=== PATIENT | male | born 1940 | race Caucasian/White ===

== ENCOUNTER 2019-10-22 12:00 | Inpatient (IN) ==
[2019-10-22 12:08] VITALS: BMI 29.3
--- NOTE | 2019-10-22 12:57 | RAD ---
HISTORYPNEUMONIASTUDYCHEST, 1 [id number] view of the chestFINDINGSCardiac and mediastinal contours are normal. Mild worsening in the right lung scattered airspace disease. Patchy left peripheral base opacity is also now present. No definite pleural effusion or pneumothorax.IMPRESSIONWorsening appearance of pneumonia.Electronically signed by: Hiram Arellano (Oct 22, 2019 12:57:10)
--- NOTE | 2019-10-22 13:01 | DR.SOBA ---
HPI Time Seen Time Seen by Provider: 10/22/19 12:42 Primary Care Physician Primary Care Physician: DR KAPADIA Complaints Chief Complaint Doctors Comments: A 78 y/o male whom I saw here 1 week ago with presentation of poor appetite, fever/chills but no SOB. He had had a COVID-!9 test but result was not available at the time. He was dx. with RLL pneumonia and sent home on Levaquin for outpt. therapy. Today, he presents with information that his oxygen level at home is low while he's wearing oxygen. I then asked him if he has a lung disease necessitating home O2 use. He answered no, the Oxygen belongs to his step son. Chief Complaint:: PT WAS DIAGNOSED WITH PNA LAST WEEK IN ER. PT STATES THAT HE HAS BEEN WEARING OXYGEN AT HOME AND CAN'T GET OXYGEN LEVEL ABOVE 94% ON 2 LITERS SO HE FELT LIKE HE NEEDED TO BE SEEN. ON TRIAGE SAT IS 86% ON ROOM AIR. DENIES SOB OR PAIN. Self Treatment fo Chief Complaint: HAS BEEN ON LEVAQUIN X 6 DAYS COVID-19 Coronavirus risk:travel/contact w/high risk person: No Has patient experienced Coronavirus symptoms: No Reviewed Nurses Notes Reviewed: Yes Source History Provided: Patient Mode of Arrival Mode of Arrival: Ambulatory Timing Onset of Chief Complaint: 10/22/19 Context Onset:: At Rest PE Risk Factors:: None History of:: None Prehospital Care:: None Modifying Factors Improves:: Nothing Associated Signs and Symptoms Associated Signs and Symptoms: None PMH PMH Past Medical History: Yes Past Medical History: Dyslipidemia and GERD Past Medical History Comment: PARKINSONS Past Surgical History: Yes Surgical History: Appendectomy Past Surgical History Comment: HERNIA REPAIR Family History History of Family Medical Conditions: Yes Family Medical History: Hypertension Social History Does patient currently use any type of tobacco product: No Have you used tobacco products in the last 12 months: No Type of Tobacco Use: None Does any household member use tobacco: No Alcohol Use: None Do you use any recreational Drugs:: No Lives With: Family Lives Where: Home Travel Risk Coronavirus risk:travel/contact w/high risk person: No Has patient experienced Coronavirus symptoms: No Infectious screening In the last 2 months have you had wt loss of >10#?: NO Have you had fever, night sweats or hemotysis?: No Have you traveled outside the country in the last 6 months?: No Isolation: Standard ROS Review of Systems Constitutional: No Symptoms Reported Eyes: No Symptoms Reported ENTM: No Symptoms Reported Respiratoy: Short of Breath Cardiovascular: No Symptoms Reported Gastrointestinal/Abdominal: No Symptoms Reported Genitourinary: No Symptoms Reported Neurological: No Symptoms Reported Musculoskeletal: No Symptoms Reported Integumentary: No Symptoms Reported Hematologic/Lymphatic: No Symptoms Reported Endocrine: No Symptoms Reported Psychiatric: No Symptoms Reported PE Vital Signs Vitals: Temperature 97.3 F Pulse Rate 75 Respiratory Rate 20 Blood Pressure 125/64 O2 Sat by Pulse Oximetry 94 General Limitations: No Limitations General Appearance: Alert and In No Apparent Distress Head Head Exam: Normal Inspection, Atraumatic and Normocephalic Eyes Eye exam: Normal Appearance and EOMI ENT ENT Exam: Normal Exam, Normal Oropharynx, Normal External Ear Exam and Mucous Membranes Moist Neck Neck Exam: Normal Inspection, Full ROM and Trachea Midline Chest Chest Inspection: Normal Inspection and Symmetric Chest Wall Rise Respiratory Respiratory Exam: Normal Lung Sounds Bilat Cardiovascular Cardiovascular Exam: Regular Rate, Normal Rhythm, Normal Heart Sounds, +S1 and +S2 Abdominal Exam Abdominal Exam: Normal Inspection, Normal Bowel Sounds and Soft Extremities Extremities Exam: Normal Inspection and Full ROM Back Back Exam: Normal Inspection and Full ROM Neurologic Neurological Exam: Alert and Oriented X3 Psychiatric Psychiatric Exam: Normal Affect and Normal Mood Skin Skin Exam: Dry and Normal Color COURSE Reevaluation 1st: Unchanged Education/Counseling Education/Counseling: Patient, Education and Counseling Educated On: Treatment, Diagnosis, Prognosis and Needs for Follow Up ROR Labs Reviewed Laboratory Results Reviewed?: Yes Result Diagrams: 10/22/19 12:51 10/22/19 12:51 Laboratory: WBC 7.9 X10^3/uL (3.6-10.0) 10/22/19 12:51 RBC 4.42 X10^6/uL (4.7-6.0) L 10/22/19 12:51 Hgb 13.3 g/dL (13.5-18.0) L 10/22/19 12:51 Hct 38.9 % (42.0-54.0) L 10/22/19 12:51 MCV 87.9 fL (80.0-100.0) 10/22/19 12:51 MCH 30.1 pg (27.0-34.0) 10/22/19 12:51 MCHC 34.2 g/dL (33.0-35.0) 10/22/19 12:51 RDW 12.8 % (11.6-16.5) 10/22/19 12:51 Plt Count 367 X10^3/uL (150.0-450.0) 10/22/19 12:51 MPV 7.6 fL (7.4-11.0) 10/22/19 12:51 Neut % (Auto) 72.3 % (42.0-75.0) 10/22/19 12:51 Lymph % (Auto) 16.6 % (21.0-51.0) L 10/22/19 12:51 [place] % (Auto) 10.0 % (0.0-13.0) 10/22/19 12:51 Eos % (Auto) 0.6 % (0.9-2.9) L 10/22/19 12:51 Baso % (Auto) 0.5 % (0.2-1.0) 10/22/19 12:51 Neut # (Auto) 5.7 x10^3/uL (2.2-4.8) H 10/22/19 12:51 Lymph # (Auto) 1.3 X10^3/uL (1.3-2.9) 10/22/19 12:51 [place] # (Auto) 0.8 x10^3/uL (0.3-0.8) 10/22/19 12:51 Eos # (Auto) 0.0 x10^3/uL (0.0-0.2) 10/22/19 12:51 Baso # (Auto) 0.0 X10^3/uL (0.0-0.1) 10/22/19 12:51 Absolute Nucleated RBC 0.0 /100WBC 10/22/19 12:51 Sample Site Lr 10/22/19 13:40 ABG pH 7.480 (7.35-7.45) H 10/22/19 13:40 ABG pCO2 42.0 mmHg (35.0-45.0) 10/22/19 13:40 ABG pO2 69.0 mmHg (80.0-100.0) L 10/22/19 13:40 ABG HCO3 31.3 mmol/L (22-26) H* 10/22/19 13:40 ABG O2 Saturation 95.0 % (90-100) 10/22/19 13:40 ABG Base Excess 7.1 mmol/L (-2.0-2.0) H 10/22/19 13:40 Delfin Test Pos 10/22/19 13:40 A-a Gradient 78.0 mmHg 10/22/19 13:40 FiO2 28.0 10/22/19 13:40 Blood Gas Comments Tarun well cb 10/22/19 13:40 Sodium 140 mmol/L (136-145) 10/22/19 12:51 Corrected Sodium 140 mmol/L (136-145) 10/22/19 12:51 Potassium 3.5 mmol/L (3.5-5.1) 10/22/19 12:51 Chloride 104 mmol/L (98-107) 10/22/19 12:51 Carbon Dioxide 29.8 mmol/L (21-32) 10/22/19 12:51 BUN 25 mg/dL (7-18) H 10/22/19 12:51 Creatinine 1.10 mg/dL (0.70-1.30) 10/22/19 12:51 Est GFR (MDRD) Af Amer > 60 (>60) 10/22/19 12:51 Est GFR (MDRD) Non-Af > 60 (>60) 10/22/19 12:51 Glucose 117 mg/dL (65-99) H 10/22/19 12:51 Calcium 8.4 mg/dL (8.5-10.1) L 10/22/19 12:51 Corrected Calcium 9.5 mg/dL (8.5-10.1) 10/22/19 12:51 Total Bilirubin 0.60 mg/dL (0.2-1.0) 10/22/19 12:51 AST 52 Units/L (15-37) H 10/22/19 12:51 ALT 11 Units/L (12-78) L 10/22/19 12:51 Alkaline Phosphatase 43 Units/L (46-116) L 10/22/19 12:51 Total Protein 6.9 g/dL (6.4-8.2) 10/22/19 12:51 Albumin 2.6 g/dL (3.4-5.0) L 10/22/19 12:51 Globulin 4.3 g/dL (2.5-4.5) 10/22/19 12:51 Albumin/Globulin Ratio 0.6 Ratio (1.1-2.1) L 10/22/19 12:51 Opioid Opioid Risk Tool Age (Gustavo box if 16-45): No History of Preadolescent Sexual Abuse: No Total: 0 Total Score Risk Category: Low Risk Copyright: Seth HOBBS predicting aberrant behaviors Diagnosis Discharge Problem: Lobar pneumonia Dyspnea Qualifiers: Dyspnea type: shortness of breath Qualified Code(s): R06.02 - Shortness of breath
[2019-10-22 13:16] LABS: BASOPHILS % (AUTO) 0.5 % (0.2-1.0); EOSINOPHILS % (AUTO) 0.6 % (0.9-2.9); HEMATOCRIT 38.9 % (42.0-54.0); HEMOGLOBIN 13.3 g/dL (13.5-18.0); LYMPHOCYTES # (AUTO) 1.3 X10^3/uL (1.3-2.9); LYMPHOCYTES % (AUTO) 16.6 % (21.0-51.0); MEAN CORPUSCULAR HEMOGLOBIN 30.1 pg (27.0-34.0); MEAN CORPUSCULAR HGB CONC 34.2 g/dL (33.0-35.0); MEAN CORPUSCULAR VOLUME 87.9 fL (80.0-100.0); MEAN PLATELET VOLUME 7.6 fL (7.4-11.0); MONOCYTES # (AUTO) 0.8 x10^3/uL (0.3-0.8); NEUTROPHILS # (AUTO) 5.7 x10^3/uL (2.2-4.8); NEUTROPHILS % (AUTO) 72.3 % (42.0-75.0); PLATELET COUNT 367 X10^3/uL (150.0-450.0); RED BLOOD COUNT 4.42 X10^6/uL (4.7-6.0); RED CELL DISTRIBUTION WIDTH 12.8 % (11.6-16.5); WHITE BLOOD COUNT 7.9 X10^3/uL (3.6-10.0)
[2019-10-22 13:24] LABS: ALANINE AMINOTRANSFERASE 11 Units/L (12-78); ALBUMIN 2.6 g/dL (3.4-5.0); ALKALINE PHOSPHATASE 43 Units/L (46-116); ASPARTATE AMINO TRANSFERASE 52 Units/L (15-37); BLOOD UREA NITROGEN 25 mg/dL (7-18); CALCIUM 8.4 mg/dL (8.5-10.1); CARBON DIOXIDE 29.8 mmol/L (21-32); CHLORIDE 104 mmol/L (98-107); COR CA(FOR HYPOALB) 9.5 mg/dL (8.5-10.1); COR NA(FOR HYPERGLY) 140 mmol/L (136-145); SODIUM 140 mmol/L (136-145); TOTAL PROTEIN 6.9 g/dL (6.4-8.2); eGFR NON BLACK RACES > 60 (>60)
[2019-10-22 13:45] LABS: ABG BASE EXCESS 7.1 mmol/L (-2.0-2.0)
[2019-10-22 13:46] LABS: ABG ALLEN TEST POS; ABG HCO3 31.3 mmol/L (22-26)
[2019-10-22] MEDS ORDERED: NS 1/2 1000 ML IV 1,000 ML IV ONE ×2 (18:42→19:55)
[2019-10-22] MEDS: ROBITUSSIN DM PO SCH ×2 (18:45→20:28)
[2019-10-22] MEDS: NS 1/2 1000 ML IV 1,000 ML IV SCH (18:45)
[2019-10-22] MEDS: ZOSYN VIAL 3.375 GRAMS 3.375 G in NS 100 ML IV + SPIKE MINIBAG* 100 ML IV SCH (20:27)
[2019-10-22] MEDS ORDERED: MUCOMYST 20% 200 MG/ML NEB SCH (21:00)
[2019-10-22] MEDS ORDERED: PULMICORT NEB TX 0.5 MG NEB SCH (21:00)
[2019-10-22] MEDS: MUCOMYST (RESPIRATORY USE ONLY) NEB SCH (21:40)
[2019-10-22] MEDS: DUONEB 0.5 MG/3 MG (3 mL) NEB SCH (21:40)
[2019-10-22] MEDS: PULMICORT NEB TX 0.5 MG NEB SCH (21:40)
[2019-10-22] MEDS ORDERED: DUONEB 0.5 MG/3 MG (3 mL) NEB SCH (22:00)
[2019-10-23] MEDS: ZOSYN VIAL 3.375 GRAMS 3.375 G in NS 100 ML IV + SPIKE MINIBAG* 100 ML IV SCH ×4 (00:21→21:29)
[2019-10-23] MEDS: MUCOMYST (RESPIRATORY USE ONLY) NEB SCH ×3 (05:45→21:15)
[2019-10-23] MEDS: DUONEB 0.5 MG/3 MG (3 mL) NEB SCH ×3 (05:45→21:15)
[2019-10-23] MEDS: NS 1/2 1000 ML IV 1,000 ML IV SCH ×3 (05:54→21:28)
[2019-10-23 06:05] LABS: ALANINE AMINOTRANSFERASE 44 Units/L (12-78); ALBUMIN 2.3 g/dL (3.4-5.0); ALKALINE PHOSPHATASE 42 Units/L (46-116); ASPARTATE AMINO TRANSFERASE 47 Units/L (15-37); BLOOD UREA NITROGEN 19 mg/dL (7-18); CALCIUM 8.3 mg/dL (8.5-10.1); CARBON DIOXIDE 31.6 mmol/L (21-32); CHLORIDE 105 mmol/L (98-107); COR CA(FOR HYPOALB) 9.7 mg/dL (8.5-10.1); COR NA(FOR HYPERGLY) 142 mmol/L (136-145); SODIUM 142 mmol/L (136-145); TOTAL PROTEIN 6.3 g/dL (6.4-8.2); eGFR NON BLACK RACES > 60 (>60)
[2019-10-23 06:10] LABS: BASOPHILS # (AUTO) 0.1 X10^3/uL (0.0-0.1); BASOPHILS % (AUTO) 0.6 % (0.2-1.0); EOSINOPHILS # (AUTO) 0.1 x10^3/uL (0.0-0.2); EOSINOPHILS % (AUTO) 1.2 % (0.9-2.9); HEMATOCRIT 36.6 % (42.0-54.0); HEMOGLOBIN 12.4 g/dL (13.5-18.0); LYMPHOCYTES # (AUTO) 1.3 X10^3/uL (1.3-2.9); LYMPHOCYTES % (AUTO) 16.2 % (21.0-51.0); MEAN CORPUSCULAR HEMOGLOBIN 30.2 pg (27.0-34.0); MEAN CORPUSCULAR HGB CONC 33.8 g/dL (33.0-35.0); MEAN CORPUSCULAR VOLUME 89.4 fL (80.0-100.0); MEAN PLATELET VOLUME 8.1 fL (7.4-11.0); MONOCYTES % (AUTO) 12.6 % (0.0-13.0); NEUTROPHILS # (AUTO) 5.7 x10^3/uL (2.2-4.8); NEUTROPHILS % (AUTO) 69.4 % (42.0-75.0); PLATELET COUNT 350 X10^3/uL (150.0-450.0); WHITE BLOOD COUNT 8.2 X10^3/uL (3.6-10.0)
[2019-10-23] MEDS: ASPIRIN EC 81 MG PO SCH (08:35)
[2019-10-23] MEDS: PULMICORT NEB TX 0.5 MG NEB SCH ×2 (08:49→21:15)
[2019-10-23] MEDS: ROBITUSSIN DM PO SCH ×4 (08:56→21:28)
[2019-10-23] MEDS: PriLOSEC PO SCH (08:56)
[2019-10-23] MEDS: ZOCOR TAB 20 MG PO SCH (08:57)
[2019-10-23] MEDS: VSL#3 PO SCH (08:58)
[2019-10-23] MEDS ORDERED: REMDESIVIR (INVESTIGATIONAL DRUG GS-5734) 200 MG in NS 250 ML IV 250 ML IV NR (09:00)
[2019-10-23] MEDS: LOVENOX INJ 40 MG SYR SC SCH (11:00)
--- NOTE | 2019-10-23 13:45 | DR.H&P ---
H&P - History & Physical for Day of: H&P Date: 10/22/19 - Chief Complaint Chief Complaint: WEAKNESS, SOB, PNEUMONIA COVID 19 - History of Present Illness History of Present Illness: A 78 y/o male whom I saw here 1 week ago with presentation of poor appetite, fever/chills but no SOB. He had had a COVID-!9 test but result was not available at the time. He was dx. with RLL pneumonia and sent home on Levaquin for outpt. therapy. Pt co PMH of hyperlipidemia, denies any HTN, DM or CAD. pt admitted for treatment of covid 19 pneumonia with hypoxia - Past Medical History Past Medical History: Dyslipidemia, GERD - Past Surgical History Surgical History: Appendectomy - Family History Family Medical History: Hypertension - Social History Does patient currently use any type of tobacco product: No Have you used tobacco products in the last 12 months: No Type of Tobacco Use: None Does any household member use tobacco: No Alcohol Use: None - Medications Home Medications: No Known Drug Allergies Allergy (Verified 10/15/19 11:51) CONTINUE taking the following medications carbidopa-levodopa [Sinemet] 1 tab PO TID 10/22/19 [History] - Review of Systems Constitutional: Fever, Chills, Weakness, Malaise Eyes: No Symptoms Reported ENT: Nose Congestion, Throat Pain Respiratory: Cough, Shortness of Breath Cardiovascular: No Symptoms Reported Gastrointestinal: Nausea, Other (poor appetite) Genitourinary: No Symptoms Reported Musculoskeletal: No Symptoms Reported Skin: No Symptoms Reported Neurological: No Symptoms Reported - Physical Exam Vital Signs: Temperature 98.4 F Pulse Rate [Bilateral Radial] 76 Pulse Rate 84 Respiratory Rate 20 Blood Pressure [Right Arm] 146/67 Blood Pressure 102/57 O2 Sat by Pulse Oximetry 95 Oriented: Normal Eyes: Normal Ear: Normal Nose: Normal Throat: Dry Respiratory: RLL Diminished, LLL Diminished Cardiovascular: Normal. negative: Edema : Normal Auscultation: Bowel Sounds: Normal Palpation: Normal Tenderness: Normal Skin: Decreased Turgur Musculoskeletal: Normal Psychiatric: Anxiety Affect: Anxious Speech Pattern: Clear, Appropriate - Assessment/Plan (1) Pneumonia due to COVID-19 virus Status: Acute Plan: ADMIT, IV ATBX, SUPPLEMENTAL O2. CXR ON ADMISSION, IV HYDRATION. ABG ON ADMISSION, VERIFY HOME MEDICATION. STRICT I&OS, RESP THERAPY (2) Hypoxemia Status: Acute - Allergies Allergies/Adverse Reactions: Allergies Allergy/AdvReac Type Severity Reaction Status Date / Time No Known Drug Allergies Allergy Verified 10/15/19 11:51
[2019-10-23] MEDS ORDERED: K-DUR TAB 20 MEQ PO ONE (15:12)
[2019-10-23] MEDS: SOLU-Medrol 125 MG VIAL IVP SCH ×2 (15:30→21:28)
[2019-10-24] MEDS: ZOSYN VIAL 3.375 GRAMS 3.375 G in NS 100 ML IV + SPIKE MINIBAG* 100 ML IV SCH ×3 (05:43→21:10)
[2019-10-24] MEDS: SOLU-Medrol 125 MG VIAL IVP SCH ×3 (05:43→21:10)
[2019-10-24] MEDS: DUONEB 0.5 MG/3 MG (3 mL) NEB SCH ×3 (05:45→21:10)
[2019-10-24] MEDS: MUCOMYST (RESPIRATORY USE ONLY) NEB SCH ×3 (05:45→21:10)
[2019-10-24 06:07] LABS: ALANINE AMINOTRANSFERASE 48 Units/L (12-78); ALBUMIN 2.2 g/dL (3.4-5.0); ALKALINE PHOSPHATASE 40 Units/L (46-116); ASPARTATE AMINO TRANSFERASE 36 Units/L (15-37); BLOOD UREA NITROGEN 19 mg/dL (7-18); CALCIUM 8.1 mg/dL (8.5-10.1); CARBON DIOXIDE 28.8 mmol/L (21-32); CHLORIDE 107 mmol/L (98-107); COR CA(FOR HYPOALB) 9.5 mg/dL (8.5-10.1); COR NA(FOR HYPERGLY) 142 mmol/L (136-145); CREATININE 1.06 mg/dL (0.70-1.30); SODIUM 140 mmol/L (136-145); eGFR NON BLACK RACES > 60 (>60)
[2019-10-24 06:08] LABS: BASOPHILS # (AUTO) 0.1 X10^3/uL (0.0-0.1); BASOPHILS % (AUTO) 1.4 % (0.2-1.0); HEMATOCRIT 34.1 % (42.0-54.0); HEMOGLOBIN 11.6 g/dL (13.5-18.0); LYMPHOCYTES # (AUTO) 0.9 X10^3/uL (1.3-2.9); LYMPHOCYTES % (AUTO) 13.9 % (21.0-51.0); MEAN CORPUSCULAR HGB CONC 33.9 g/dL (33.0-35.0); MEAN CORPUSCULAR VOLUME 88.6 fL (80.0-100.0); MONOCYTES # (AUTO) 0.1 x10^3/uL (0.3-0.8); MONOCYTES % (AUTO) 1.8 % (0.0-13.0); NEUTROPHILS # (AUTO) 5.1 x10^3/uL (2.2-4.8); NEUTROPHILS % (AUTO) 82.9 % (42.0-75.0); PLATELET COUNT 363 X10^3/uL (150.0-450.0); RED BLOOD COUNT 3.85 X10^6/uL (4.7-6.0); RED CELL DISTRIBUTION WIDTH 12.5 % (11.6-16.5); WHITE BLOOD COUNT 6.1 X10^3/uL (3.6-10.0)
[2019-10-24] MEDS ORDERED: NS 1/2 1000 ML IV 1,000 ML IV ONE (07:16)
[2019-10-24] MEDS: ASPIRIN EC 81 MG PO SCH (08:30)
[2019-10-24] MEDS: REMDESIVIR (INVESTIGATIONAL DRUG GS-5734) 100 MG in NS 250 ML IV 250 ML IV SCH (08:31)
[2019-10-24] MEDS: ROBITUSSIN DM PO SCH ×4 (08:31→20:50)
[2019-10-24] MEDS: NS 1/2 1000 ML IV 1,000 ML IV SCH ×2 (08:31→11:42)
[2019-10-24] MEDS: PriLOSEC PO SCH (08:32)
[2019-10-24] MEDS: VSL#3 PO SCH (08:32)
[2019-10-24] MEDS: LOVENOX INJ 40 MG SYR SC SCH (08:33)
[2019-10-24] MEDS: ZOCOR TAB 20 MG PO SCH (08:33)
[2019-10-24] MEDS: PULMICORT NEB TX 0.5 MG NEB SCH ×2 (09:03→21:10)
--- NOTE | 2019-10-24 14:59 | RAD ---
HISTORYPNEUMONIASTUDYPortable AP chestCOMPARISONAugust 2019FINDINGSThere is little change showing multifocal infiltrates most severe at the right lung base and peripherally in the right upper lobe. There is a mild infiltrate at the left lung base laterally. The heart size is prominent. The mediastinum is unremarkable. Right costophrenic angle is minimally blunted.IMPRESSIONPersistent peripheral right lung multifocal pneumonia most prominent in the right lower lobe with a questionable tiny right pleural effusionLeft basilar peripheral subsegmental atelectasis or pneumonitis.Electronically signed by: LAURA ANAND (Oct 24, 2019 14:57:33)
[2019-10-25] MEDS: SOLU-Medrol 125 MG VIAL IVP SCH ×3 (05:14→21:21)
[2019-10-25] MEDS: NS 1/2 1000 ML IV 1,000 ML IV SCH ×2 (05:14→15:41)
[2019-10-25] MEDS: ZOSYN VIAL 3.375 GRAMS 3.375 G in NS 100 ML IV + SPIKE MINIBAG* 100 ML IV SCH ×3 (05:15→21:21)
[2019-10-25 05:42] LABS: ABG ALLEN TEST POS; ABG BASE EXCESS 2.8 mmol/L (-2.0-2.0); ABG HCO3 26.1 mmol/L (22-26)
[2019-10-25 05:50] LABS: ALANINE AMINOTRANSFERASE 41 Units/L (12-78); ALBUMIN 2.1 g/dL (3.4-5.0); ALKALINE PHOSPHATASE 38 Units/L (46-116); ASPARTATE AMINO TRANSFERASE 23 Units/L (15-37); BASOPHILS # (AUTO) 0.1 X10^3/uL (0.0-0.1); BASOPHILS % (AUTO) 0.7 % (0.2-1.0); BLOOD UREA NITROGEN 27 mg/dL (7-18); CALCIUM 8.1 mg/dL (8.5-10.1); CARBON DIOXIDE 27.8 mmol/L (21-32); CHLORIDE 106 mmol/L (98-107); COR CA(FOR HYPOALB) 9.6 mg/dL (8.5-10.1); COR NA(FOR HYPERGLY) 144 mmol/L (136-145); CREATININE 1.17 mg/dL (0.70-1.30); HEMATOCRIT 32.3 % (42.0-54.0); LYMPHOCYTES # (AUTO) 0.8 X10^3/uL (1.3-2.9); LYMPHOCYTES % (AUTO) 6.4 % (21.0-51.0); MEAN CORPUSCULAR HEMOGLOBIN 29.9 pg (27.0-34.0); MEAN CORPUSCULAR VOLUME 88.1 fL (80.0-100.0); MEAN PLATELET VOLUME 8.1 fL (7.4-11.0); MONOCYTES # (AUTO) 0.6 x10^3/uL (0.3-0.8); MONOCYTES % (AUTO) 4.7 % (0.0-13.0); NEUTROPHILS # (AUTO) 10.8 x10^3/uL (2.2-4.8); NEUTROPHILS % (AUTO) 88.2 % (42.0-75.0); PLATELET COUNT 382 X10^3/uL (150.0-450.0); RED BLOOD COUNT 3.66 X10^6/uL (4.7-6.0); RED CELL DISTRIBUTION WIDTH 12.8 % (11.6-16.5); SODIUM 141 mmol/L (136-145); TOTAL PROTEIN 5.6 g/dL (6.4-8.2); WHITE BLOOD COUNT 12.2 X10^3/uL (3.6-10.0); eGFR NON BLACK RACES > 60 (>60)
[2019-10-25] MEDS: DUONEB 0.5 MG/3 MG (3 mL) NEB SCH ×3 (06:26→21:00)
[2019-10-25] MEDS: MUCOMYST (RESPIRATORY USE ONLY) NEB SCH ×3 (06:26→21:00)
--- NOTE | 2019-10-25 06:38 | RAD ---
HISTORYSOBSTUDYAP [id number]/2020FINDINGSMild stable cardiomegaly. Persistent bilateral pulmonary infiltrates, right lung greater than left. There is no new consolidation, developing edema or large pleural effusion.IMPRESSIONNo change in appearance of the bilateral pulmonary infiltrates/pneumonia.Electronically signed by: ANDREZ SUMMERS (Oct 25, 2019 06:37:46)
[2019-10-25] MEDS: PULMICORT NEB TX 0.5 MG NEB SCH ×2 (09:40→21:00)
[2019-10-25] MEDS: REMDESIVIR (INVESTIGATIONAL DRUG GS-5734) 100 MG in NS 250 ML IV 250 ML IV SCH (10:20)
[2019-10-25] MEDS: ASPIRIN EC 81 MG PO SCH (10:20)
[2019-10-25] MEDS: ROBITUSSIN DM PO SCH ×4 (10:21→21:21)
[2019-10-25] MEDS: VSL#3 PO SCH (10:21)
[2019-10-25] MEDS: PriLOSEC PO SCH (10:21)
[2019-10-25] MEDS: ZOCOR TAB 20 MG PO SCH (10:22)
[2019-10-25] MEDS: LOVENOX INJ 40 MG SYR SC SCH (10:22)
--- NOTE | 2019-10-25 11:22 | PCM.PROG ---
Progress Note - Progress Note for Day of Date of Exam: 10/25/19 - Subjective Subjective: IS A PATIENT OF . HE IS BEING TREATED FOR PNEUMONIA DUE TO COVID-19, AND HYPOXIA. TODAY, HE IS LYING IN BED ON MORNING ROUNDS. HE AWAKENS TO VERBAL STIMULI. HE CONTINUES WITH COMPLAINTS OF COUGH, SHORTNESS OF BREATH, AND WEAKNESS TODAY. HE IS CURRENTLY UTILIZING OXYGEN VIA NASAL CANNULA. ON EXAMINATION, HEART IS REGULAR IN RATE AND RHYTHM. BILATERAL LUNGS ARE NOTED WITH DIMINISHED LUNG SOUNDS THROUGHOUT. ABDOMEN IS ROUND, SOFT, AND NON-TENDER WITH NORMAL BOWEL SOUNDS NOTED IN ALL QUADRANTS. HER VITALS THIS MORNING ARE: 97.7-65-18-94%NC-111/59. LABS WERE OBTAINED. ABNORMAL LAB VALUES INCLUDE THE FOLLOWING: WBC 12.2, RBC 3.66, HGB 11.0, HCT 32.3, BUN 27, GLUCOSE 217, CALCIUM 8.1, ALK PHOS 38, CRP 7.80, TOTAL PROTEIN 5.6, ALBUMIN 2.1. AN ABG WAS OBTAINED AND REVEALED: PH 7.480, PC02 35, P02 73, HC03 26.1, 02 SAT 96, FI02 28. BLOOD CULTURES ARE PENDING. A CHEST XRAY WAS OBTAINED AND REVEALED: No change in appearance of the bilateral pulmonary infiltrates/pneumonia. HE IS CURRENTLY RECEIVING 1/2NS AT 75 ML/HR, ZOSYN 3.375 G IV TID, REMDESIVIR 100MG IV DAILY, SOLU-MEDROL 80MG IV Q8H, DUONEBS TID, PULMICORT NEBS BID, MUCOMYST IN NEB [place] TID, LOVENOX 40MG SC DAILY, ROBITUSSIN DM 10ML PO QID.WE WILL CONTINUE WITH CURRENT PLAN OF CARE TODAY. OTHERWISE, WE PLAN TO FOLLOW UP WITH AM LABS, CHEST XRAY, AND ABG AND CONTINUE TO MONITOR. - Past Medical Family Social History Past Med/Fam/Surg Hx: No changes since H&P Allergies: Allergies No Known Drug Allergies Allergy (Verified 10/15/19 11:51) - Review of Systems ROS: No change since H&P - Vital Signs and I&O's Vital Signs: Temperature 97.7 F Pulse Rate [Bilateral Radial] 65 Pulse Rate 74 Respiratory Rate 18 Blood Pressure [Right Arm] 111/59 Blood Pressure 102/57 O2 Sat by Pulse Oximetry 94 Intake and Output: Intake & Output 08/19/20 08/20/20 08/21/20 08/22/20 11:59 11:59 11:59 11:59 Intake Total 1089 / 1089 2954 / 2954 2774 / 2774 Output Total 100 / 100 1051 / 1051 525 / 525 Balance 989 / 989 1903 / 1903 2249 / 2249 - Physical Exam Oriented: Normal Eyes: Normal Ear: Normal Nose: Normal Throat: Dry Respiratory: Generalized, Diminished, Wheezes Cardiovascular: Normal. negative: Edema : Normal Auscultation: Bowel Sounds: Normal Palpation: Normal Tenderness: Normal Skin: Decreased Turgur Musculoskeletal: Normal Psychiatric: Anxiety Affect: Anxious Speech Pattern: Clear, Appropriate - Laboratory and Diagnostics Result Diagrams: 10/25/19 04:00 10/25/19 04:00 Labs: 10/22/19 18:25 Blood Blood Culture - Preliminary 10/22/19 15:34 Blood Blood Culture - Preliminary 10/22/19 13:00 Blood Blood Culture - Preliminary 10/22/19 12:51 Blood Blood Culture - Preliminary Laboratory WBC 12.2 X10^3/uL (3.6-10.0) H 10/25/19 04:00 RBC 3.66 X10^6/uL (4.7-6.0) L 10/25/19 04:00 Hgb 11.0 g/dL (13.5-18.0) L 10/25/19 04:00 Hct 32.3 % (42.0-54.0) L 10/25/19 04:00 MCV 88.1 fL (80.0-100.0) 10/25/19 04:00 MCH 29.9 pg (27.0-34.0) 10/25/19 04:00 MCHC 34.0 g/dL (33.0-35.0) 10/25/19 04:00 RDW 12.8 % (11.6-16.5) 10/25/19 04:00 Plt Count 382 X10^3/uL (150.0-450.0) 10/25/19 04:00 MPV 8.1 fL (7.4-11.0) 10/25/19 04:00 Neut % (Auto) 88.2 % (42.0-75.0) H 10/25/19 04:00 Lymph % (Auto) 6.4 % (21.0-51.0) L 10/25/19 04:00 [place] % (Auto) 4.7 % (0.0-13.0) 10/25/19 04:00 Eos % (Auto) 0.0 % (0.9-2.9) L 10/25/19 04:00 Baso % (Auto) 0.7 % (0.2-1.0) 10/25/19 04:00 Neut # (Auto) 10.8 x10^3/uL (2.2-4.8) H 10/25/19 04:00 Lymph # (Auto) 0.8 X10^3/uL (1.3-2.9) L 10/25/19 04:00 [place] # (Auto) 0.6 x10^3/uL (0.3-0.8) 10/25/19 04:00 Eos # (Auto) 0.0 x10^3/uL (0.0-0.2) 10/25/19 04:00 Baso # (Auto) 0.1 X10^3/uL (0.0-0.1) 10/25/19 04:00 Absolute Nucleated RBC 0.0 /100WBC 10/25/19 04:00 Sample Site Rr 10/25/19 05:00 ABG pH 7.480 (7.35-7.45) H 10/25/19 05:00 ABG pCO2 35.0 mmHg (35.0-45.0) 10/25/19 05:00 ABG pO2 73.0 mmHg (80.0-100.0) L 10/25/19 05:00 ABG HCO3 26.1 mmol/L (22-26) H 10/25/19 05:00 ABG O2 Saturation 96.0 % (90-100) 10/25/19 05:00 ABG Base Excess 2.8 mmol/L (-2.0-2.0) H 10/25/19 05:00 Delfin Test Pos 10/25/19 05:00 A-a Gradient 83.0 mmHg 10/25/19 05:00 FiO2 28.0 10/25/19 05:00 Blood Gas Comments Tarun well sw 10/25/19 05:00 Sodium 141 mmol/L (136-145) 10/25/19 04:00 Corrected Sodium 144 mmol/L (136-145) 10/25/19 04:00 Potassium 3.8 mmol/L (3.5-5.1) 10/25/19 04:00 Chloride 106 mmol/L (98-107) 10/25/19 04:00 Carbon Dioxide 27.8 mmol/L (21-32) 10/25/19 04:00 BUN 27 mg/dL (7-18) H 10/25/19 04:00 Creatinine 1.17 mg/dL (0.70-1.30) 10/25/19 04:00 Est GFR (MDRD) Af Amer > 60 (>60) 10/25/19 04:00 Est GFR (MDRD) Non-Af > 60 (>60) 10/25/19 04:00 Glucose 217 mg/dL (65-99) H 10/25/19 04:00 POC Glucose (mg/dL) 119 mg/dL (65-99) H 10/23/19 12:08 Calcium 8.1 mg/dL (8.5-10.1) L 10/25/19 04:00 Corrected Calcium 9.6 mg/dL (8.5-10.1) 10/25/19 04:00 Ferritin 366 ng/mL (26-388) 10/25/19 04:00 Total Bilirubin 0.30 mg/dL (0.2-1.0) 10/25/19 04:00 AST 23 Units/L (15-37) 10/25/19 04:00 ALT 41 Units/L (12-78) 10/25/19 04:00 Alkaline Phosphatase 38 Units/L (46-116) L 10/25/19 04:00 C-Reactive Protein 7.80 mg/L (0-3.0) H 10/25/19 04:00 Total Protein 5.6 g/dL (6.4-8.2) L 10/25/19 04:00 Albumin 2.1 g/dL (3.4-5.0) L 10/25/19 04:00 Globulin 3.5 g/dL (2.5-4.5) 10/25/19 04:00 Albumin/Globulin Ratio 0.6 Ratio (1.1-2.1) L 10/25/19 04:00 SARS-CoV-2 (PCR) Positive (NEGATIVE) A 10/22/19 15:15 - Plan (1) Pneumonia due to COVID-19 virus Status: Acute Plan: 1/2NS AT 75 ML/HR, ZOSYN 3.375 G IV TID, REMDESIVIR 100MG IV DAILY, SOLU- MEDROL 80MG IV Q8H, DUONEBS TID, PULMICORT NEBS BID, MUCOMYST IN NEB [place] TID, LOVENOX 40MG SC DAILY, ROBITUSSIN DM 10ML PO QID (2) Hypoxemia Status: Acute
[2019-10-25] MEDS ORDERED: NS 1/2 1000 ML IV 1,000 ML IV ONE (19:21)
[2019-10-25] MEDS ORDERED: MILK OF MAGNESIA PO PRN (20:09)
[2019-10-25] MEDS: COLACE CAP 100 MG PO PRN (21:22)
[2019-10-26] MEDS: SOLU-Medrol 125 MG VIAL IVP SCH ×4 (05:04→21:20)
[2019-10-26] MEDS: ZOSYN VIAL 3.375 GRAMS 3.375 G in NS 100 ML IV + SPIKE MINIBAG* 100 ML IV SCH ×3 (05:04→21:19)
[2019-10-26] MEDS: NS 1/2 1000 ML IV 1,000 ML IV SCH ×2 (05:04→20:30)
[2019-10-26] MEDS: MUCOMYST (RESPIRATORY USE ONLY) NEB SCH ×3 (05:10→23:30)
[2019-10-26] MEDS: DUONEB 0.5 MG/3 MG (3 mL) NEB SCH ×3 (05:10→23:30)
[2019-10-26 06:24] LABS: ALANINE AMINOTRANSFERASE 42 Units/L (12-78); ALBUMIN 2.1 g/dL (3.4-5.0); ALKALINE PHOSPHATASE 38 Units/L (46-116); ASPARTATE AMINO TRANSFERASE 19 Units/L (15-37); BLOOD UREA NITROGEN 31 mg/dL (7-18); CARBON DIOXIDE 27.4 mmol/L (21-32); CHLORIDE 106 mmol/L (98-107); COR CA(FOR HYPOALB) 9.5 mg/dL (8.5-10.1); COR NA(FOR HYPERGLY) 144 mmol/L (136-145); CREATININE 1.34 mg/dL (0.70-1.30); SODIUM 139 mmol/L (136-145); TOTAL PROTEIN 5.5 g/dL (6.4-8.2); eGFR NON BLACK RACES 55 (>60)
[2019-10-26 06:25] LABS: BASOPHILS % (AUTO) 0.2 % (0.2-1.0); HEMATOCRIT 32.2 % (42.0-54.0); HEMOGLOBIN 10.8 g/dL (13.5-18.0); LYMPHOCYTES # (AUTO) 0.7 X10^3/uL (1.3-2.9); LYMPHOCYTES % (AUTO) 5.5 % (21.0-51.0); MEAN CORPUSCULAR HEMOGLOBIN 30.1 pg (27.0-34.0); MEAN CORPUSCULAR HGB CONC 33.6 g/dL (33.0-35.0); MEAN CORPUSCULAR VOLUME 89.5 fL (80.0-100.0); MEAN PLATELET VOLUME 8.9 fL (7.4-11.0); MONOCYTES # (AUTO) 0.6 x10^3/uL (0.3-0.8); MONOCYTES % (AUTO) 4.7 % (0.0-13.0); NEUTROPHILS # (AUTO) 10.6 x10^3/uL (2.2-4.8); NEUTROPHILS % (AUTO) 89.6 % (42.0-75.0); PLATELET COUNT 389 X10^3/uL (150.0-450.0); RED BLOOD COUNT 3.59 X10^6/uL (4.7-6.0); RED CELL DISTRIBUTION WIDTH 13.2 % (11.6-16.5); WHITE BLOOD COUNT 11.9 X10^3/uL (3.6-10.0)
--- NOTE | 2019-10-26 07:05 | RAD ---
HISTORYShortness of breathSTUDYChest AP [id number] heart remains enlarged. No congestive heart failure is noted. Diffuse interstitial right lung infiltrates are unchanged. More mild left basilar interstitial infiltrates are unchanged. No pleural effusions are identified. Bony thorax is unremarkable.IMPRESSIONNo change bilateral infiltrates right greater than leftNo change cardiomegaly without congestive heart failureElectronically signed by: LAINE MUÑOZ (Oct 26, 2019 07:04:30)
[2019-10-26] MEDS: ASPIRIN EC 81 MG PO SCH (08:07)
[2019-10-26] MEDS: PriLOSEC PO SCH (08:09)
[2019-10-26] MEDS: ZOCOR TAB 20 MG PO SCH (08:09)
[2019-10-26] MEDS: ROBITUSSIN DM PO SCH ×4 (08:10→20:31)
[2019-10-26] MEDS: LOVENOX INJ 40 MG SYR SC SCH (08:10)
[2019-10-26] MEDS: REMDESIVIR (INVESTIGATIONAL DRUG GS-5734) 100 MG in NS 250 ML IV 250 ML IV SCH (08:10)
[2019-10-26] MEDS: VSL#3 PO SCH (08:10)
[2019-10-26] MEDS: PULMICORT NEB TX 0.5 MG NEB SCH ×2 (09:55→21:45)
[2019-10-26] MEDS ORDERED: NS 1/2 1000 ML IV 1,000 ML IV ONE (19:08)
[2019-10-26] MEDS ORDERED: SOLU-Medrol 40 MG VIAL ONE (19:15)
--- NOTE | 2019-10-26 22:52 | PCM.PROG ---
Progress Note - Progress Note for Day of Date of Exam: 10/26/19 - Subjective Subjective: IS A PATIENT OF . HE IS BEING TREATED FOR PNEUMONIA DUE TO COVID-19, AND HYPOXIA. TODAY, HE IS LYING IN BED ON MORNING ROUNDS. HE AWAKENS TO VERBAL STIMULI. HE CONTINUES WITH COMPLAINTS OF COUGH, SHORTNESS OF BREATH, AND WEAKNESS TODAY. HE IS CURRENTLY UTILIZING OXYGEN VIA NASAL CANNULA. ON EXAMINATION, HEART IS REGULAR IN RATE AND RHYTHM. BILATERAL LUNGS ARE NOTED WITH DIMINISHED LUNG SOUNDS THROUGHOUT. ABDOMEN IS ROUND, SOFT, AND NON-TENDER WITH NORMAL BOWEL SOUNDS NOTED IN ALL QUADRANTS. HER VITALS THIS MORNING ARE: 98.0-90-20-92%NC-133/66. LABS WERE OBTAINED. ABNORMAL LAB VALUES INCLUDE THE FOLLOWING: WBC 11.9, RBC 3.59, HGB 10.8, HCT 32.2, BUN 31, CREATININE 1.34, GLUCOSE 312, CALCIUM 8.0, ALK PHOS 38, CRP 4.20, TOTAL PROTEIN 5.5, ALBUMIN 2.1. BLOOD CULTURES ARE PENDING. A CHEST XRAY WAS OBTAINED AND REVEALED: No change bilateral infiltrates right greater than left. No change cardiomegaly without congestive heart failure. HE IS CURRENTLY RECEIVING 1/2NS AT 75 ML/HR, ZOSYN 3.375 G IV TID, REMDESIVIR 100MG IV DAILY, SOLU-MEDROL 80MG IV Q8H, DUONEBS TID, PULMICORT NEBS BID, MUCOMYST IN NEB [place] TID, LOVENOX 40MG SC DAILY, ROBITUSSIN DM 10ML PO QID.WE WILL CONTINUE WITH CURRENT PLAN OF CARE TODAY. OTHERWISE, WE PLAN TO FOLLOW UP WITH AM LABS, CHEST XRAY, AND ABG AND CONTINUE TO MONITOR. - Past Medical Family Social History Past Med/Fam/Surg Hx: No changes since H&P Allergies: Allergies No Known Drug Allergies Allergy (Verified 10/15/19 11:51) - Review of Systems ROS: No change since H&P - Vital Signs and I&O's Vital Signs: Temperature 97.9 F Pulse Rate [Bilateral Radial] 83 Pulse Rate 89 Respiratory Rate 20 Blood Pressure [Right Arm] 122/66 Blood Pressure 102/57 O2 Sat by Pulse Oximetry 94 Intake and Output: Intake & Output 10/24/19 10/25/19 10/26/19 10/27/19 11:59 11:59 11:59 11:59 Intake Total 2954 / 2954 2774 / 2774 3024 / 3024 1406 / 1406 Output Total 1051 / 1051 525 / 525 1550 / 1550 500 / 500 Balance 1903 / 1903 2249 / 2249 1474 / 1474 906 / 906 - Physical Exam Oriented: Normal Eyes: Normal Ear: Normal Nose: Normal Throat: Dry Respiratory: Generalized, Diminished, Wheezes Cardiovascular: Normal. negative: Edema : Normal Auscultation: Bowel Sounds: Normal Tenderness: Normal Skin: Decreased Turgur Musculoskeletal: Normal Psychiatric: Anxiety Affect: Anxious Speech Pattern: Clear, Appropriate - Laboratory and Diagnostics Result Diagrams: 10/26/19 04:30 10/26/19 04:30 Labs: 10/22/19 18:25 Blood Blood Culture - Preliminary 10/22/19 15:34 Blood Blood Culture - Preliminary 10/22/19 13:00 Blood Blood Culture - Preliminary 10/22/19 12:51 Blood Blood Culture - Preliminary Laboratory WBC 11.9 X10^3/uL (3.6-10.0) H 10/26/19 04:30 RBC 3.59 X10^6/uL (4.7-6.0) L 10/26/19 04:30 Hgb 10.8 g/dL (13.5-18.0) L 10/26/19 04:30 Hct 32.2 % (42.0-54.0) L 10/26/19 04:30 MCV 89.5 fL (80.0-100.0) 10/26/19 04:30 MCH 30.1 pg (27.0-34.0) 10/26/19 04:30 MCHC 33.6 g/dL (33.0-35.0) 10/26/19 04:30 RDW 13.2 % (11.6-16.5) 10/26/19 04:30 Plt Count 389 X10^3/uL (150.0-450.0) 10/26/19 04:30 MPV 8.9 fL (7.4-11.0) 10/26/19 04:30 Neut % (Auto) 89.6 % (42.0-75.0) H 10/26/19 04:30 Lymph % (Auto) 5.5 % (21.0-51.0) L 10/26/19 04:30 [place] % (Auto) 4.7 % (0.0-13.0) 10/26/19 04:30 Eos % (Auto) 0.0 % (0.9-2.9) L 10/26/19 04:30 Baso % (Auto) 0.2 % (0.2-1.0) 10/26/19 04:30 Neut # (Auto) 10.6 x10^3/uL (2.2-4.8) H 10/26/19 04:30 Lymph # (Auto) 0.7 X10^3/uL (1.3-2.9) L 10/26/19 04:30 [place] # (Auto) 0.6 x10^3/uL (0.3-0.8) 10/26/19 04:30 Eos # (Auto) 0.0 x10^3/uL (0.0-0.2) 10/26/19 04:30 Baso # (Auto) 0.0 X10^3/uL (0.0-0.1) 10/26/19 04:30 Absolute Nucleated RBC 0.0 /100WBC 10/26/19 04:30 Sample Site Rr 10/25/19 05:00 ABG pH 7.480 (7.35-7.45) H 10/25/19 05:00 ABG pCO2 35.0 mmHg (35.0-45.0) 10/25/19 05:00 ABG pO2 73.0 mmHg (80.0-100.0) L 10/25/19 05:00 ABG HCO3 26.1 mmol/L (22-26) H 10/25/19 05:00 ABG O2 Saturation 96.0 % (90-100) 10/25/19 05:00 ABG Base Excess 2.8 mmol/L (-2.0-2.0) H 10/25/19 05:00 Delfin Test Pos 10/25/19 05:00 A-a Gradient 83.0 mmHg 10/25/19 05:00 FiO2 28.0 10/25/19 05:00 Blood Gas Comments Tarun well sw 10/25/19 05:00 Sodium 139 mmol/L (136-145) 10/26/19 04:30 Corrected Sodium 144 mmol/L (136-145) 10/26/19 04:30 Potassium 3.7 mmol/L (3.5-5.1) 10/26/19 04:30 Chloride 106 mmol/L (98-107) 10/26/19 04:30 Carbon Dioxide 27.4 mmol/L (21-32) 10/26/19 04:30 BUN 31 mg/dL (7-18) H 10/26/19 04:30 Creatinine 1.34 mg/dL (0.70-1.30) H 10/26/19 04:30 Est GFR (MDRD) Af Amer > 60 (>60) 10/26/19 04:30 Est GFR (MDRD) Non-Af 55 (>60) L 10/26/19 04:30 Glucose 312 mg/dL (65-99) H 10/26/19 04:30 POC Glucose (mg/dL) 119 mg/dL (65-99) H 10/23/19 12:08 Calcium 8.0 mg/dL (8.5-10.1) L 10/26/19 04:30 Corrected Calcium 9.5 mg/dL (8.5-10.1) 10/26/19 04:30 Ferritin 369 ng/mL (26-388) 10/26/19 04:30 Total Bilirubin 0.30 mg/dL (0.2-1.0) 10/26/19 04:30 AST 19 Units/L (15-37) 10/26/19 04:30 ALT 42 Units/L (12-78) 10/26/19 04:30 Alkaline Phosphatase 38 Units/L (46-116) L 10/26/19 04:30 C-Reactive Protein 4.20 mg/L (0-3.0) H 10/26/19 04:30 Total Protein 5.5 g/dL (6.4-8.2) L 10/26/19 04:30 Albumin 2.1 g/dL (3.4-5.0) L 10/26/19 04:30 Globulin 3.4 g/dL (2.5-4.5) 10/26/19 04:30 Albumin/Globulin Ratio 0.6 Ratio (1.1-2.1) L 10/26/19 04:30 SARS-CoV-2 (PCR) Positive (NEGATIVE) A 10/22/19 15:15 - Plan (1) Pneumonia due to COVID-19 virus Status: Acute Plan: 1/2NS AT 75 ML/HR, ZOSYN 3.375 G IV TID, REMDESIVIR 100MG IV DAILY, SOLU- MEDROL 80MG IV Q8H, DUONEBS TID, PULMICORT NEBS BID, MUCOMYST IN NEB TX TID, LOVENOX 40MG SC DAILY, ROBITUSSIN DM 10ML PO QID (2) Hypoxemia Status: Acute
[2019-10-27] MEDS ORDERED: ZOSYN VIAL 3.375 GRAMS IV ONE (02:22)
[2019-10-27] MEDS: SOLU-Medrol 125 MG VIAL IVP SCH ×3 (05:31→21:08)
[2019-10-27] MEDS: ZOSYN VIAL 3.375 GRAMS 3.375 G in NS 100 ML IV + SPIKE MINIBAG* 100 ML IV SCH ×3 (05:31→21:08)
[2019-10-27] MEDS: DUONEB 0.5 MG/3 MG (3 mL) NEB SCH ×3 (05:40→21:20)
[2019-10-27] MEDS: MUCOMYST (RESPIRATORY USE ONLY) NEB SCH ×3 (05:40→21:20)
[2019-10-27 06:37] LABS: BASOPHILS % (AUTO) 0.2 % (0.2-1.0); HEMATOCRIT 34.1 % (42.0-54.0); HEMOGLOBIN 11.7 g/dL (13.5-18.0); LYMPHOCYTES # (AUTO) 0.6 X10^3/uL (1.3-2.9); LYMPHOCYTES % (AUTO) 5.7 % (21.0-51.0); MEAN CORPUSCULAR HEMOGLOBIN 30.1 pg (27.0-34.0); MEAN CORPUSCULAR HGB CONC 34.3 g/dL (33.0-35.0); MEAN CORPUSCULAR VOLUME 87.8 fL (80.0-100.0); MEAN PLATELET VOLUME 8.4 fL (7.4-11.0); MONOCYTES # (AUTO) 0.6 x10^3/uL (0.3-0.8); MONOCYTES % (AUTO) 5.3 % (0.0-13.0); NEUTROPHILS # (AUTO) 9.7 x10^3/uL (2.2-4.8); NEUTROPHILS % (AUTO) 88.8 % (42.0-75.0); PLATELET COUNT 424 X10^3/uL (150.0-450.0); RED BLOOD COUNT 3.89 X10^6/uL (4.7-6.0); RED CELL DISTRIBUTION WIDTH 13.2 % (11.6-16.5); WHITE BLOOD COUNT 10.9 X10^3/uL (3.6-10.0)
[2019-10-27 06:43] LABS: ALANINE AMINOTRANSFERASE 38 Units/L (12-78); ALBUMIN 2.2 g/dL (3.4-5.0); ALKALINE PHOSPHATASE 42 Units/L (46-116); ASPARTATE AMINO TRANSFERASE 16 Units/L (15-37); BLOOD UREA NITROGEN 26 mg/dL (7-18); CALCIUM 8.1 mg/dL (8.5-10.1); CARBON DIOXIDE 25.7 mmol/L (21-32); CHLORIDE 107 mmol/L (98-107); COR CA(FOR HYPOALB) 9.5 mg/dL (8.5-10.1); COR NA(FOR HYPERGLY) 145 mmol/L (136-145); CREATININE 1.16 mg/dL (0.70-1.30); SODIUM 141 mmol/L (136-145); TOTAL PROTEIN 5.6 g/dL (6.4-8.2); eGFR NON BLACK RACES > 60 (>60)
--- NOTE | 2019-10-27 07:52 | RAD ---
HISTORYShort of breathSTUDYCHEST, 1 VIEWCOMPARISONChest film October 26, 2019FINDINGSThe trachea is midline. The cardiac silhouette is unremarkable . The left lung demonstrates minimal residual infiltrate in the left lung base. The infiltrate in the right lung base shows minimal improvement compared to the film of October 26, 2019. The bony thorax is unremarkable.IMPRESSIONBibasilar infiltrates right greater than left with minimal improvement in the infiltrate in the right lung base compared to October 26, 2019 film.Electronically signed by: ALINA JANG (Oct 27, 2019 07:51:55)
[2019-10-27] MEDS: NS 1/2 1000 ML IV 1,000 ML IV SCH ×2 (08:00→22:57)
[2019-10-27 09:00] LABS: ABG ALLEN TEST POS; ABG BASE EXCESS 3.6 mmol/L (-2.0-2.0); ABG HCO3 26.1 mmol/L (22-26)
[2019-10-27] MEDS: LOVENOX INJ 40 MG SYR SC SCH (09:09)
[2019-10-27] MEDS: ZOCOR TAB 20 MG PO SCH (09:09)
[2019-10-27] MEDS: PriLOSEC PO SCH (09:09)
[2019-10-27] MEDS: COLACE CAP 100 MG PO PRN (09:09)
[2019-10-27] MEDS: ROBITUSSIN DM PO SCH ×4 (09:09→20:43)
[2019-10-27] MEDS: ASPIRIN EC 81 MG PO SCH (09:09)
[2019-10-27] MEDS: VSL#3 PO SCH (09:10)
[2019-10-27] MEDS: PULMICORT NEB TX 0.5 MG NEB SCH ×2 (09:25→21:20)
[2019-10-27] MEDS ORDERED: SOLU-Medrol 40 MG VIAL ONE (13:53)
[2019-10-27] MEDS ORDERED: K-DUR TAB 20 MEQ PO PRN (19:06)
[2019-10-27] MEDS ORDERED: POTASSIUM CHL 40 MEQ/NS 0.45% 500 ML IV PRN (19:06)
[2019-10-27] MEDS ORDERED: MAGNESIUM SULFATE 1 GRAM/100 mL PREMIX 1 GM/100 ML BAG IV PRN (19:06)
[2019-10-27] MEDS ORDERED: POTASSIUM CHLORIDE LIQ 20 MEQ UDC PO PRN (19:06)
[2019-10-27] MEDS ORDERED: POTASSIUM CHL 60 MEQ/NS 0.45% 500 ML IV PRN (19:06)
[2019-10-27] MEDS ORDERED: K-RIDER 10 MEQ/NS 100 ML 10 MEQ/100 ML BAG IV PRN (19:06)
[2019-10-27] MEDS ORDERED: MICRO K EXTEN CAP 10 MEQ PO PRN (19:06)
[2019-10-27] MEDS ORDERED: KLOR-CON PO PRN (19:06)
[2019-10-27] MEDS ORDERED: NS 1/2 1000 ML IV 1,000 ML IV ONE (20:55)
[2019-10-28] MEDS: SOLU-Medrol 125 MG VIAL IVP SCH (05:09)
[2019-10-28] MEDS: ZOSYN VIAL 3.375 GRAMS 3.375 G in NS 100 ML IV + SPIKE MINIBAG* 100 ML IV SCH ×2 (05:10→13:44)
[2019-10-28 05:41] LABS: ABG BASE EXCESS 1.7 mmol/L (-2.0-2.0); ABG HCO3 25.8 mmol/L (22-26)
[2019-10-28 05:42] LABS: ABG ALLEN TEST POSS
[2019-10-28] MEDS: MUCOMYST (RESPIRATORY USE ONLY) NEB SCH (05:45)
[2019-10-28] MEDS: DUONEB 0.5 MG/3 MG (3 mL) NEB SCH (05:45)
--- NOTE | 2019-10-28 06:13 | RAD ---
HISTORYSOBSTUDYCHEST, 1 VIEWCOMPARISONOne day priorTECHNIQUEAP view of the chestFINDINGSCardiac and mediastinal contours are stable. Stable scattered airspace and interstitial opacities worst in the left base and right peripheral mid and lower lung. No pneumothorax. Suspect small pleural effusions.IMPRESSIONNo significant change.Electronically signed by: Hiram Arellano (Oct 28, 2019 06:12:54)
[2019-10-28 06:55] LABS: BASOPHILS % (AUTO) 0.2 % (0.2-1.0); HEMATOCRIT 33.1 % (42.0-54.0); HEMOGLOBIN 11.4 g/dL (13.5-18.0); LYMPHOCYTES # (AUTO) 0.6 X10^3/uL (1.3-2.9); LYMPHOCYTES % (AUTO) 5.6 % (21.0-51.0); MEAN CORPUSCULAR HGB CONC 34.4 g/dL (33.0-35.0); MEAN CORPUSCULAR VOLUME 87.1 fL (80.0-100.0); MEAN PLATELET VOLUME 8.3 fL (7.4-11.0); MONOCYTES # (AUTO) 0.5 x10^3/uL (0.3-0.8); MONOCYTES % (AUTO) 5.4 % (0.0-13.0); NEUTROPHILS % (AUTO) 88.8 % (42.0-75.0); PLATELET COUNT 386 X10^3/uL (150.0-450.0); RED BLOOD COUNT 3.81 X10^6/uL (4.7-6.0); RED CELL DISTRIBUTION WIDTH 13.5 % (11.6-16.5); WHITE BLOOD COUNT 10.2 X10^3/uL (3.6-10.0)
[2019-10-28 07:01] LABS: ALANINE AMINOTRANSFERASE 31 Units/L (12-78); ALKALINE PHOSPHATASE 43 Units/L (46-116); ASPARTATE AMINO TRANSFERASE 10 Units/L (15-37); BLOOD UREA NITROGEN 23 mg/dL (7-18); CALCIUM 7.8 mg/dL (8.5-10.1); CHLORIDE 109 mmol/L (98-107); COR CA(FOR HYPOALB) 9.4 mg/dL (8.5-10.1); COR NA(FOR HYPERGLY) 145 mmol/L (136-145); CREATININE 1.13 mg/dL (0.70-1.30); SODIUM 141 mmol/L (136-145); TOTAL PROTEIN 5.1 g/dL (6.4-8.2); eGFR NON BLACK RACES > 60 (>60)
[2019-10-28] MEDS: PULMICORT NEB TX 0.5 MG NEB SCH (08:35)
[2019-10-28] MEDS ORDERED: VITAMIN C PO SCH (09:00)
[2019-10-28] MEDS ORDERED: PLAQUENIL PO SCH (09:00)
[2019-10-28] MEDS ORDERED: ZITHROMAX INJ 500 MG VIAL 500 MG in NS 250 ML IV 250 ML IV SCH (09:00)
[2019-10-28] MEDS: VSL#3 PO SCH (10:05)
[2019-10-28] MEDS: LOVENOX INJ 40 MG SYR SC SCH (10:05)
[2019-10-28] MEDS: ZOCOR TAB 20 MG PO SCH (10:05)
[2019-10-28] MEDS: PriLOSEC PO SCH (10:05)
[2019-10-28] MEDS: ROBITUSSIN DM PO SCH ×2 (10:05→13:43)
[2019-10-28] MEDS: ASPIRIN EC 81 MG PO SCH (10:05)
[2019-10-28 12:05] VITALS: BP 160/72
[2019-10-28] MEDS: NS 1/2 1000 ML IV 1,000 ML IV SCH (13:44)
[2019-10-28] MEDS ORDERED: SOLU-Medrol 40 MG VIAL IVP SCH (14:00)
[2019-10-28] MEDS ORDERED: SOLU-Medrol 125 MG VIAL IVP SCH (14:00)
== END 2019-10-28 16:25 | disposition home health service (06) | DRG 177 ==
LOC: ER 12:00 → MED/SURG 12:00
PROVIDERS: ADMIT Internal Medicine; ATTEND Internal Medicine
DX: U07.1 COVID-19; N40.0 Benign prostatic hyperplasia without lower urinary tract symptoms; J12.89 Other viral pneumonia; I10 Essential (primary) hypertension; R06.02 Shortness of breath; K21.9 Gastro-esophageal reflux disease without esophagitis; E78.2 Mixed hyperlipidemia